=== PATIENT | female | born 1995 | race Caucasian/White ===

== ENCOUNTER 2022-10-22 06:21 | Emergency (ER) | payer OTHER ==
[~2022-10-22] VITALS: Ht 167.6 cm; Wt 92.0 kg
[2022-10-22] MEDS ORDERED: MORPHINE 2 MG/ML 1ML VIAL IV ONE (08:10)
[2022-10-22] MEDS ORDERED: KETOROLAC 30 MG/ML 1ML VIAL IV ONE (08:10)
[2022-10-22] MEDS ORDERED: CYCLOBENZAPRINE 10MG TABLET PO ONE (08:10)
[2022-10-22] MEDS ORDERED: ONDANSETRON 4MG 2ML VIAL IV ONE (08:10)
[2022-10-22] MEDS ORDERED: MORPHINE 4 MG/ML 1ML VIAL IV ONE (09:10)
[2022-10-22] MEDS ORDERED: IBUP200T46 PO (09:53)
[2022-10-22] MEDS ORDERED: META400T PO (10:15)
[2022-10-22] MEDS ORDERED: IBUP-1022 PO (10:17)
[2022-10-22 10:32] VITALS: BP 119/64
[2022-10-22] MEDS ORDERED: PERC5TAB12 PO (12:19)
== END 2022-10-22 10:39 | disposition home or self-care (01) ==
LOC: M ED 06:21 → EDBD 06:21 → M ED 10:39
DX: M54.50 Low back pain, unspecified (principal); F17.200 Nicotine dependence, unspecified, uncomplicated
CPT/HCPCS: 84702; 96374; 96375; 96376; 99284; J1885; J2405

== ENCOUNTER 2023-09-06 09:43 | Outpatient (CLI) | payer OTHER ==
[~2023-09-06] VITALS: Ht 167.6 cm; Wt 117.7 kg
[~2023-09-06 09:43] MED LIST: IBUP-1022 PO; IBUP200T46 PO; META400T PO; PERC5TAB12 PO
[2023-09-06] MEDS ORDERED: HOME MED LIST COMPLETE! XX SCH (11:55)
[2023-09-06] MEDS ORDERED: PRENTAB9 PO (11:58)
[2023-09-06] MEDS ORDERED: ANTA1CHW6 PO (11:58)
== END 2023-09-06 11:20 | disposition home or self-care (01) ==
LOC: M LDO 09:43
PROVIDERS: ATTEND Obstetrics & Gynecology
DX: O36.8130 Decreased fetal movements, third trimester, not applicable or unspecified (principal); Z3A.37 37 weeks gestation of pregnancy
CPT/HCPCS: 59025; 76815; G0463

== ENCOUNTER 2023-09-20 06:58 | Inpatient (IN) | payer OTHER ==
[~2023-09-20] VITALS: Ht 167.6 cm; Wt 117.5 kg
[2023-09-20] VITALS (9 sets, daily range): BP systolic 95–143; BP diastolic 50–80; TEMP 97; O2SAT 96–99
[~2023-09-20 06:58] MED LIST changes: +ANTA1CHW6 PO; +PRENTAB9 PO
[2023-09-20] MEDS ORDERED: ceFAZolin SOD 2 GM in IV 1 EA IV ONE (07:10)
[2023-09-20] MEDS ORDERED: HOME MED LIST COMPLETE! XX SCH (07:25)
[2023-09-20 08:11] LABS: HEMATOCRIT 36.4 % (36.0-47.0); HEMOGLOBIN 12.2 g/dl (12.0-15.5); MEAN CORPUSCULAR HEMOGLOBIN 29.8 pg (27.0-33.0); MEAN CORPUSCULAR HGB CONC 33.5 g/dl (32.0-36.5); MEAN CORPUSCULAR VOLUME 88.8 fl (80.0-96.0); PLATELET COUNT, AUTOMATED 295 10^3/uL (150-450); WHITE BLOOD COUNT 6.6 10^3/uL (4.0-10.0)
[2023-09-20] MEDS ORDERED: ceFAZolin SOD 3 GM in D5W MINI-BAG PLUS 50 ML IV ONE (08:35)
[2023-09-20] MEDS: LR 1,000 ML IV SCH ×2 (08:49→18:00)
[2023-09-20] MEDS: ceFAZolin SOD 2 GM in IV 1 EA IV ONE (08:49)
[2023-09-20] MEDS: BICITRA 30ML SOLN UDC PO ONE (08:49)
[2023-09-20] MEDS: LACTATED RINGER'S 1000 ML IV STA (08:49)
[2023-09-20] MEDS: ceFAZolin SOD 1 GM in D5W MINI-BAG PLUS 50 ML IV ONE (08:50)
[2023-09-20] MEDS: PRENATAL VITAMINS CHEWABLE TABLET PO SCH (09:00)
[2023-09-20] MEDS: DOCUSATE SODIUM 100MG CAPSULE PO SCH (09:00)
[2023-09-20] MEDS ORDERED: KETOROLAC 60MG 2ML VIAL As Ordered ONE (10:58)
[2023-09-20] MEDS ORDERED: KETAMINE HCL 200MG/20ML VIAL As Ordered ONE (10:58)
[2023-09-20] MEDS ORDERED: MORPHINE PRES-FREE INJ 10 MG/10 ML VIAL As Ordered ONE (10:58)
[2023-09-20] MEDS ORDERED: MIDAZOLAM INJ 2MG/2ML VIAL As Ordered ONE (10:58)
[2023-09-20] MEDS ORDERED: ePHEDrine SULFATE 25 MG/5 ML(5MG/ML) SYRINGE As Ordered ONE (10:58)
[2023-09-20] MEDS ORDERED: OXYTOCIN 30UNITS IN 0.9% NaCl 500ML IV BAG As Ordered ONE (10:58)
[2023-09-20] MEDS ORDERED: ONDANSETRON 4MG 2ML VIAL As Ordered ONE (10:58)
[2023-09-20] MEDS ORDERED: PHENYLephrine 500MCG 5ML (100MCG/ML) SYRINGE As Ordered ONE (10:58)
[2023-09-20 11:25] LABS: CORD GAS ABE A -6.7; CORD GAS HCO3 A 23.9 MMOL/L; CORD GAS O2 SAT A 21.7 %; CORD GAS PCO2 A 69.6 mmHg; CORD GAS PH A 7.154 UNITS; CORD GAS PO2 A 14.7 mmHg; CORD GAS SBC A 17.2 MMOL/L; CORD GAS TCO2 A 26.1 MMOL/L
[2023-09-20 11:27] LABS: CORD GAS ABE V -5.7; CORD GAS HCO3 V 23.2 MMOL/L; CORD GAS PCO2 V 58.1 mmHg; CORD GAS PH V 7.22 UNITS; CORD GAS PO2 V 20.5 mmHg; CORD GAS SBC V 18.3 MMOL/L
[2023-09-20] MEDS ORDERED: TRANEXAMIC ACID 100 MG/ML 10ML VIAL As Ordered ONE (12:02)
[2023-09-20] MEDS ORDERED: fentaNYL 100 MCG/2 ML INJECTION IV PRN (12:50)
[2023-09-20] MEDS ORDERED: NALOXONE INJ 0.4MG/1ML VIAL IV PRN ×2 (12:50)
[2023-09-20] MEDS ORDERED: ONDANSETRON 4MG 2ML VIAL IV PRN (12:50)
[2023-09-20] MEDS: SLF 3 ML SYR IV SCH (12:50)
[2023-09-20] MEDS ORDERED: **NOTE PATIENT COMMENT** MISC XX SCH (12:50)
[2023-09-20] MEDS ORDERED: METHYLERGONOVINE MALEATE 0.2MG/ML 1ML VIAL IM PRN (13:00)
[2023-09-20] MEDS ORDERED: METOCLOPRAMIDE INJ 10MG/2ML VIAL IV PRN (13:00)
[2023-09-20] MEDS ORDERED: oxyCODONE 5MG TAB PO PRN (13:00)
[2023-09-20] MEDS: OXYTOCIN DRIP 30 UNITS in IV 1 EA IV SCH (13:00)
[2023-09-20] MEDS ORDERED: RHOGAM 300MCG (1500IU) INJ IM SCH (13:00)
[2023-09-20] MEDS: ACETAMINOPHEN 500 MG TAB PO SCH (14:00)
[2023-09-20] MEDS: ONDANSETRON 4MG 2ML VIAL IV PRN (14:55)
[2023-09-20] MEDS: SIMETHICONE 80MG CHEW TAB PO PRN (18:20)
[2023-09-20] MEDS: KETOROLAC 30 MG/ML 1ML VIAL IV SCH (18:20)
[2023-09-20] MEDS: METOCLOPRAMIDE INJ 10MG/2ML VIAL IV PRN (18:43)
[2023-09-21] MEDS: diphenhydrAMINE 50MG/ML VIAL IV PRN (04:00)
[2023-09-21 05:57] VITALS: BP 87/45; O2SAT 97
[2023-09-21 08:18] LABS: HEMATOCRIT 28.5 % (36.0-47.0); MEAN CORPUSCULAR HEMOGLOBIN 29.7 pg (27.0-33.0); MEAN CORPUSCULAR VOLUME 90.2 fl (80.0-96.0); PLATELET COUNT, AUTOMATED 258 10^3/uL (150-450); RED BLOOD COUNT 3.16 10^6/uL (4.00-5.40); WHITE BLOOD COUNT 6.8 10^3/uL (4.0-10.0)
[2023-09-21 08:20] LABS: HEMOGLOBIN 9.4 g/dl (12.0-15.5)
[2023-09-21 10:00] VITALS: BP 111/56; O2SAT 96
[2023-09-21] MEDS: ENOXAPARIN 40MG/0.4ML SYRINGE (J1650 PER 10MG) SC SCH (12:24)
[2023-09-21 14:00] VITALS: BP 98/50; O2SAT 96
[2023-09-21] MEDS: IBUPROFEN 800 MG TAB PO SCH (15:51)
[2023-09-21 18:00] VITALS: BP 95/50; O2SAT 98
[2023-09-21 22:32] VITALS: BP 118/66; O2SAT 97
[2023-09-22 02:57] VITALS: BP 125/59; O2SAT 98
[2023-09-22 06:13] VITALS: BP 90/53; O2SAT 98
[2023-09-22] MEDS: oxyCODONE 5MG TAB PO PRN (08:34)
[2023-09-22] MEDS ORDERED: MEASLES,MUMPS,RUBELLA VACCINE INJ (MMR-II) SC.IMMUN ONE (09:00)
[2023-09-22 10:00] VITALS: BP 110/61; O2SAT 98
[2023-09-22] MEDS: INFLUENZA QUADRIVALENT PF VACCINE 0.5ML SYRINGE IM.IMMUN ONE (14:30)
== END 2023-09-22 02:50 | disposition home or self-care (01) | DRG 773 ==
LOC: M LDI 06:58 → EDSTATUS 09:30 → M OBS 14:00
PROVIDERS: ADMIT Obstetrics & Gynecology; ATTEND Obstetrics & Gynecology
PROC: 10D00Z1 Extraction of Products of Conception, Low, Open Approach (ICD-10-PCS; principal; 2023-09-20 09:30)
DX: O34.211 Maternal care for low transverse scar from previous cesarean delivery (principal); Z37.0 Single live birth; Z3A.39 39 weeks gestation of pregnancy

== ENCOUNTER 2024-10-29 12:32 | Emergency (ER) | payer OTHER ==
[~2024-10-29] VITALS: Ht 167.6 cm; Wt 105.5 kg
[2024-10-29 12:43] VITALS: TEMP 98
[2024-10-29] MEDS ORDERED: OXYC-1 PO (12:50)
[2024-10-29] MEDS: diazePAM 5MG TABLET PO ONE (15:24)
[2024-10-29] MEDS: ACETAMINOPHEN 500 MG TAB PO ONE (15:24)
[2024-10-29] MEDS: KETOROLAC 30 MG/ML 1ML VIAL IM ONE (15:28)
[2024-10-29] MEDS ORDERED: methylPREDNISolone 125MG 2ML VIAL IM ONE (16:35)
[2024-10-29] MEDS: methylPREDNISolone 125MG 2ML VIAL IV ONE (16:55)
[2024-10-29] MEDS ORDERED: METH-1165 PO (17:25)
[2024-10-29] MEDS ORDERED: MEDR4PAK PO (17:25)
[2024-10-29 17:42] VITALS: BP 129/70; O2SAT 99
== END 2024-10-29 17:44 | disposition home or self-care (01) ==
LOC: M ED 12:32
DX: M46.1 Sacroiliitis, not elsewhere classified (principal); Z79.899 Other long term (current) drug therapy
CPT/HCPCS: 73502; 96372; 96374; 99284; J1885; J2919